=== PATIENT | female | born 1980 | race Caucasian/White ===

== ENCOUNTER 2017-01-11 17:03 | Emergency (ER) | payer OTHER ==
[~2017-01-11] VITALS: Ht 160 cm; Wt 59.3 kg
[~2017-01-11 17:03] MED LIST: ALBUAER2 INH; OXYC5TAB PO
[2017-01-11 17:05] VITALS: TEMP 36.9; Ht 160 cm; Wt 59.3 kg
[2017-01-11] MEDS ORDERED: SODIUM CHLORIDE 0.9% 1000ML 1,000 ML IV STA ×2 (17:24)
[2017-01-11] MEDS ORDERED: ONDANSETRON INJ 2 MG/ML 2 ML VIAL IV STA (17:24)
[2017-01-11] MEDS ORDERED: MoRPHine SULFATE 4 MG/ML 1 ML CARP\\VIAL IV STA (17:24)
[2017-01-11] MEDS ORDERED: PROP20TA67 PO (17:29)
[2017-01-11] MEDS ORDERED: HYDR25CA PO (17:29)
[2017-01-11] MEDS ORDERED: FLUO10CA48 PO (17:29)
[2017-01-11 17:50] LABS: BASO % 0.2 %; BASO ABS # 0.02 K/uL (0-0.2); COMPLETE YES; HEMATOCRIT 37.6 % (37-47); IG% 0.2 %; LYMPH % 18.3 %; LYMPH ABS # 2.31 K/uL (1.2-3.4); MEAN CELL VOLUME 92.6 fL (80-100); MEAN CORPUSCULAR HEMOGLOBIN 31.5 pg (25-34); MEAN PLATELET VOLUME 10.1 fL (7.4-10.4); MONO % 6.3 %; PLATELET COUNT 240 K/uL (130-400); RED BLOOD COUNT 4.06 M/uL (4.2-5.4)
[2017-01-11 18:11] LABS: URINE APPEARANCE CLEAR (CLEAR); URINE BILIRUBIN NEG (NEG); URINE COLOR YELLOW; URINE EPITHELIAL CELL AUTO >30 /lpf (0-5); URINE NITRITE NEG (NEG); URINE PH 5.5 (4.5-7.5); URINE SPECIFIC GRAVITY 1.023 (1.000-1.030); UROBILINOGEN NEG (NEG)
[2017-01-11 18:13] LABS: MANUAL MICROSCOPIC REQUIRED? NO; REVIEW REQ? NO
[2017-01-11 18:14] LABS: BUN/CREATININE RATIO 17.4 (10-20); CALCIUM 9.2 mg/dl (8.5-10.1); CREATININE 0.92 mg/dl (0.60-1.20)
[2017-01-11 18:17] LABS: ALB/GLOB RATIO 1.1 (0.9-2)
[2017-01-11] MEDS ORDERED: OPTIRAY 320 IV PRN (19:15)
--- NOTE | 2017-01-11 19:21 | DIAGNOSTIC IMAGING REPORT ---
ABD/PELVIS IV CONTRAST ONLY CT DOSE: 266.69 mGy.cm HISTORY: Pain PERIUMBILICAL/ RLQ PAIN SINCE YESTERDAY TECHNIQUE: Multiaxial CT images of the abdomen and pelvis were performed following the use of intravenous contrast. A dose lowering technique was utilized adhering to the principles of ALARA. COMPARISON STUDY: 12/20/2008 FINDINGS: The lung bases are clear. The liver, spleen, gallbladder, pancreas, kidneys, and adrenal glands are within normal limits. No bowel wall thickening or obstruction. Pelvis demonstrates a 1.8 cm collapsing right ovarian cyst. There is a small amount of free fluid within the pelvic cul-de-sac. The appendix is normal. The bowel pattern is nonobstructive. IMPRESSION: 1.8 cm collapsing right ovarian cyst. Small amount of free fluid within the pelvic cul-de-sac. Otherwise normal study. Normal appendix The above report was generated using voice recognition software. It may contain grammatical, syntax or spelling errors. Electronically signed by: Yony Collins M.D. 01/11/2017 7:19 PM Dictated Date/Time: 01/11/2017 7:17 PM
[2017-01-11] MEDS ORDERED: TRAMADOL HCL 50 MG HOME PACK PO ONE (19:45)
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
[2017-01-11 20:00] VITALS: BP 147/81; PULSE 62; O2SAT 98
== END 2017-01-11 20:02 | disposition home or self-care (01) ==
LOC: C.EDB 17:04
DX: N83.201 Unspecified ovarian cyst, right side (principal); F41.9 Anxiety disorder, unspecified; F17.200 Nicotine dependence, unspecified, uncomplicated

== ENCOUNTER → 2017-10-01 | Outpatient (CLI) | payer OTHER ==
[~2017-10-01] MED LIST changes: -ALBUAER2 INH; +FLUO10CA48 PO; +HYDR25CA PO; -OXYC5TAB PO; +PROP20TA67 PO
== END | disposition home or self-care (01) ==
LOC: C.LAB 01:49
DX: Z02.83 Encounter for blood-alcohol and blood-drug test (principal)